=== PATIENT | female | born 1980 | race African-American/Black ===

== ENCOUNTER 2017-07-27 11:41 | Emergency (ER) | payer MEDICARE, MEDICAID ==
[~2017-07-27] VITALS: Ht 160 cm; Wt 57.7 kg
[2017-07-27 12:00] VITALS: BP 148/96
== END 2017-07-27 13:12 | disposition left against medical advice (07) ==
LOC: ER 11:41
DX: R07.9 Chest pain, unspecified (principal); Z53.21 Procedure and treatment not carried out due to patient leaving prior to being seen by health care provider